=== PATIENT | female | born 1995 | race Hispanic/Latino ===

== ENCOUNTER 2018-06-21 18:49 | Emergency (ER) | payer MEDICAID ==
[~2018-06-21 18:49] MED LIST: PNV11TAB5 PO
[2018-06-21] MEDS ORDERED: NEOMYCIN/POLYMYXIN/HC OTIC SUSP 10ML BOTTLE ONE (19:11)
== END 2018-06-21 19:50 | disposition home or self-care (01) ==
LOC: EDH 18:49
DX: H60.392 Other infective otitis externa, left ear (principal)

== ENCOUNTER 2021-05-31 19:03 | Inpatient (IN) | payer MEDICAID ==
[~2021-05-31] VITALS: Ht 162.6 cm; Wt 140.2 kg
[2021-05-31] MEDS: LACTATED RINGERS 1000ML 1,000 ML IV PRN (08:15)
[2021-05-31] MEDS ORDERED: EPHEDRINE SULFATE 50 MG/ML AMPULE IVP PRN (19:30)
[2021-05-31] MEDS ORDERED: PROMETHAZINE HCL 25 MG/ML 1ML AMPULE IM PRN (19:30)
[2021-05-31] MEDS ORDERED: MEPERIDINE-PF 50 MG/ML SYG IVP PRN (19:30)
[2021-05-31] MEDS ORDERED: NALOXONE HCL 0.4 MG/1 ML ML IV PRN (19:30)
[2021-05-31] MEDS ORDERED: LACTATED RINGERS 500 ML 500 ML IV PRN (19:30)
[2021-05-31] MEDS ORDERED: ROPIVACAINE 0.2% 100ML VIAL 100 ML EP PRN (19:30)
[2021-05-31 19:53] LABS: APPEARANCE,URINE Cloudy (CLEAR); BILIRUBIN,URINE Negative (NEGATIVE); COLOR,URINE Yellow (YELLOW); GLUCOSE, URINE (UA) Negative (NEGATIVE); KETONES,URINE Negative (NEGATIVE); LEUKOCYTE ESTERASE ,URINE Moderate (NEGATIVE); NITRATE,URINE Negative (NEGATIVE); OCCULT BLOOD,URINE Negative (NEGATIVE); PROTEIN,URINE Trace mg/dL (NEGATIVE)
[2021-05-31] MEDS ORDERED: AMPICILLIN 2GM+NS 100ML 100 ML IV SCH (20:00)
[2021-05-31 20:07] LABS: BACTERIA,URINE Few /HPF (None Seen); MUCUS,URINE Few LPF (None Seen); SQUAMOUS EPITHELIAL CELL,UR Many /HPF (0-2)
[2021-05-31 20:13] LABS: HEMATOCRIT 33.9 % (36-48); MEAN CORPUSCULAR HEMOGLOBIN 26.4 pg (27.0-33.0); MEAN CORPUSCULAR HGB CONC 32.7 g/dL (32.0-36.0); MEAN CORPUSCULAR VOLUME 80.5 fL (79-99); RED BLOOD CELL COUNT(AUTO) 4.21 MIL/uL (4.00-5.50); RED CELL DISTRIBUTION WIDTH 14.2 % (11.0-15.5); WHITE BLOOD COUNT (AUTO) 13.4 K/uL (4.8-10.8)
[2021-05-31] MEDS ORDERED: AMPICILLIN 2GM+NS 100ML 100 ML IV ONE (20:31)
[2021-05-31] MEDS ORDERED: DINOPROSTONE 10 MG VAGINAL SUPP VG SCH (20:32)
[2021-05-31 21:00] VITALS: BP 132/68
[2021-05-31] MEDS ORDERED: PREN1TAB80 PO (21:31)
[2021-05-31] MEDS ORDERED: CALC500T7 PO (21:31)
[2021-05-31] MEDS ORDERED: METF-445 PO (21:31)
[2021-05-31] MEDS: AMPICILLIN 1GM+NS 50ML 50 ML IV SCH (23:39)
[2021-06-01] MEDS: LACTATED RINGERS 1000ML 1,000 ML IV PRN ×2 (02:28→13:40)
[2021-06-01] MEDS: AMPICILLIN 1GM+NS 50ML 50 ML IV SCH ×3 (04:18→13:00)
[2021-06-01] MEDS ORDERED: OXYTOCIN-LR 20 UNITS/1000 ML 1,000 ML IV ONE (07:12)
[2021-06-01] MEDS ORDERED: OXYTOCIN-LR 20 UNITS/1000 ML 1,000 ML IV SCH (09:00)
[2021-06-01] MEDS ORDERED: FENTANYL CITRATE PF 50 MCG/1 ML 2ML VIAL ONE ×2 (14:04→18:18)
[2021-06-01] MEDS ORDERED: IBUPROFEN 600 MG TABLET ONE (21:19)
[2021-06-01] MEDS ORDERED: WITCH HAZEL 1 PAD TP PRN (21:30)
[2021-06-01] MEDS ORDERED: DIPH,PERTUSS(ACELL),TET VAC/PF 0.5 ML VIAL IM PRN (21:30)
[2021-06-01] MEDS ORDERED: LANOLIN 30GM OINTMENT TP PRN (21:30)
[2021-06-01] MEDS ORDERED: ACETAMINOPHEN WITH CODEINE 1 TAB TAB PO PRN (21:30)
[2021-06-01] MEDS ORDERED: ACETAMINOPHEN 325 MG TAB PO PRN (21:30)
[2021-06-01] MEDS ORDERED: BENZOCAINE/LANOLIN/ALOE VERA 60 ML AEROSOL TP PRN (21:30)
[2021-06-01] MEDS ORDERED: MEASLES/MUMPS/RUBELLA VACCINE, LIVE 0.5 ML/VIAL SQ PRN (21:30)
[2021-06-02] VITALS: BP 118/56
[2021-06-02 04:00] VITALS: BP 105/55
[2021-06-02 06:12] LABS: HEPATITIS Bs ANTIGEN SCREEN P Negative (Negative)
[2021-06-02 06:46] LABS: HEMATOCRIT 31.8 % (36-48); MEAN CORPUSCULAR HEMOGLOBIN 26.8 pg (27.0-33.0); MEAN CORPUSCULAR HGB CONC 32.1 g/dL (32.0-36.0); MEAN CORPUSCULAR VOLUME 83.5 fL (79-99); RED BLOOD CELL COUNT(AUTO) 3.81 MIL/uL (4.00-5.50); RED CELL DISTRIBUTION WIDTH 14.3 % (11.0-15.5); WHITE BLOOD COUNT (AUTO) 14.6 K/uL (4.8-10.8)
[2021-06-02 08:07] VITALS: BP 131/79
[2021-06-02] MEDS: IBUPROFEN 600 MG TABLET PO PRN ×2 (08:09→17:26)
[2021-06-02] MEDS ORDERED: DOCUSATE SODIUM 100 MG CAP PO SCH (09:00)
[2021-06-02 11:03] VITALS: BP 93/58
[2021-06-02 15:58] VITALS: BP 107/44
[2021-06-02 19:15] VITALS: BP 114/63
== END 2021-06-02 20:25 | disposition home or self-care (01) | DRG 560 ==
LOC: LDH 19:03 → WSH 06-01 22:34
PROVIDERS: ADMIT Obstetrics & Gynecology; ATTEND Obstetrics & Gynecology
PROC: 10E0XZZ Delivery of Products of Conception, External Approach (ICD-10-PCS; principal; 2021-05-31)
PROC: 0KQM0ZZ Repair Perineum Muscle, Open Approach (ICD-10-PCS; 2021-05-31)
PROC: 10907ZC Drainage of Amniotic Fluid, Therapeutic from Products of Conception, Via Natural or Artificial Opening (ICD-10-PCS; 2021-05-31)
PROC: 3E0134Z Introduction of Serum, Toxoid and Vaccine into Subcutaneous Tissue, Percutaneous Approach (ICD-10-PCS; 2021-05-31)
PROC: 3E0334Z Introduction of Serum, Toxoid and Vaccine into Peripheral Vein, Percutaneous Approach (ICD-10-PCS; 2021-05-31)
DX: O99.214 Obesity complicating childbirth (principal); E66.01 Morbid (severe) obesity due to excess calories; O24.420 Gestational diabetes mellitus in childbirth, diet controlled; O70.1 Second degree perineal laceration during delivery; Z37.0 Single live birth; Z3A.37 37 weeks gestation of pregnancy; O99.824 Streptococcus B carrier state complicating childbirth; O26.893 Other specified pregnancy related conditions, third trimester; Z67.41 Type O blood, Rh negative; Z23 Encounter for immunization
CPT/HCPCS: 36415; 76805; 81001; 82947; 83033; 85027; 86592; 86701; 86850; 86900; 86901; 87088; 87340; 87390; 90707; A4314; G0378; J0290; J2175; J2550; J2590; J2791; J2795; J3010; J7120

== ENCOUNTER 2021-09-10 17:47 | Emergency (ER) | payer MEDICAID ==
[~2021-09-10] VITALS: Ht 162.6 cm; Wt 117.9 kg
[~2021-09-10 17:47] MED LIST changes: +CALC500T7 PO; +METF-445 PO; -PNV11TAB5 PO; +PREN1TAB80 PO
[2021-09-10 19:23] VITALS: BP 140/72
[2021-09-10] MEDS ORDERED: GENTAMICIN SULFATE 0.3% 5ML DROPS ONE (19:26)
[2021-09-10] MEDS: GENTAMICIN SULFATE 0.3% 5ML DROPS OU SCH (19:57)
== END 2021-09-10 20:02 | disposition home or self-care (01) ==
LOC: EDH 17:47
DX: H10.9 Unspecified conjunctivitis (principal); E66.9 Obesity, unspecified; Z68.41 Body mass index [BMI] 40.0-44.9, adult; Z79.899 Other long term (current) drug therapy

== ENCOUNTER 2023-03-19 16:53 | Observation (INO) | payer MEDICAID ==
[~2023-03-19] VITALS: Ht 167.6 cm; Wt 140.6 kg
[2023-03-19 16:53] VITALS: BP 163/92; PULSE 89; RESP 20
[2023-03-19 17:29] LABS: APPEARANCE,URINE CLEAR (CLEAR); BILIRUBIN,URINE NEGATIVE (NEGATIVE); COLOR,URINE YELLOW (YELLOW); GLUCOSE, URINE (UA) NEGATIVE (NEGATIVE); KETONES,URINE NEGATIVE (NEGATIVE); LEUKOCYTE ESTERASE ,URINE 500 Leu/uL (NEGATIVE); NITRATE,URINE NEGATIVE (NEGATIVE); OCCULT BLOOD,URINE NEGATIVE (NEGATIVE); PH,URINE 6.5 (5.0-8.0); PROTEIN,URINE 20 mg/dL (NEGATIVE)
[2023-03-19 17:31] LABS: ADD UA MICROSCOPIC YES
[2023-03-19 17:33] LABS: BACTERIA,URINE FEW /HPF (None Seen); MUCUS,URINE RARE LPF (None Seen); RBC,URINE 0-1 /HPF (0-1); SQUAMOUS EPITHELIAL CELL,UR FEW /HPF (0-2)
[2023-03-19 17:36] LABS: AMPHET/METH SCREEN,URINE NEGATIVE (NEGATIVE); BARBITURATE SCREEN, URINE NEGATIVE (NEGATIVE); BENZODIAZEPINES SCREEN,URINE NEGATIVE (NEGATIVE); CANNABINOID SCREEN,URINE NEGATIVE (NEGATIVE); COCAINE SCREEN,URINE NEGATIVE (NEGATIVE); OPIATE SCREEN,URINE NEGATIVE (NEGATIVE); PHENCYCLIDINE SCREEN,URINE NEGATIVE (NEGATIVE)
== END 2023-03-19 18:07 | disposition home or self-care (01) ==
LOC: EDH 16:53 → LDH 17:07
PROVIDERS: ADMIT Obstetrics & Gynecology; ATTEND Obstetrics & Gynecology
DX: O36.8130 Decreased fetal movements, third trimester, not applicable or unspecified (principal); O99.891 Other specified diseases and conditions complicating pregnancy; M54.9 Dorsalgia, unspecified; Z79.899 Other long term (current) drug therapy; W19.XXXA Unspecified fall, initial encounter; Y92.89 Other specified places as the place of occurrence of the external cause; Y93.89 Activity, other specified; Y99.8 Other external cause status
CPT/HCPCS: 59025; 80305; 87088; 81001; G0378; G0379